=== PATIENT | female | born 1945 | race Caucasian/White ===

== ENCOUNTER → 2021-02-08 11:45 | Outpatient (CLI) | payer MEDICARE, SELFPAY ==
[2021-02-08 13:27] LABS: COVID19 -Nasal RAPID Negative (Negative)
== END ==
PROVIDERS: PCP Physician Assistant; Visit Provider Physician Assistant
DX: Z20.822 Contact with and (suspected) exposure to COVID-19 (principal)
CPT/HCPCS: 87635; C9803

== ENCOUNTER 2021-02-09 13:10 | Day surgery (SDC) | payer MEDICARE, SELFPAY ==
--- NOTE | 2021-02-09 | PATH_ITS ---
[facility] Accession Number: [id number] . 01 Material submitted: . PART A: gastrointestinal site - ANTRUM BIOPSY PART B: gastrointestinal site - GASTRIC POLYP X2 PART C: esophagus - MID ESOPHAGUS BIOPSY . 01 Clinical history: . SDC . 02 Diagnosis: A. Antrum, Biopsy: Portions of gastric antral mucosa with mild chronic inflammation. Negative for Helicobacter by immunohistochemistry. Negative for intestinal metaplasia. Negative for dysplasia and malignancy. . B. Gastric Polyp x2: Portions of fundic gland polyp x 2. Negative for Helicobacter organisms on H/E stain. Negative for dysplasia and malignancy. . C. Mid Esophagus Biopsy: Squamous mucosa with no diagnostic abnormality. Intraepithelial eosinophils are not increased. Negative for dysplasia and malignancy. MRV 02/17/2021 1522 Local . 02 Electronically signed: . Angelica Sales MD, Pathologist NPI- [id number] . 01 Gross description: . Part A: ANTRUM BIOPSY: Received in formalin are 2 fragment(s) of ribera, soft tissue measuring 0.1 x 0.1 x 0.1 cm to 0.2 x 0.2 x 0.2 cm submitted entirely in 1 cassette(s) Part B: GASTRIC POLYP X2: Received in formalin are 2 fragment(s) of ribera, soft tissue measuring 0.4 x 0.3 x 0.3 cm to 0.6 x 0.3 x 0.3 cm submitted entirely in 1 cassette(s) Part C: MID ESOPHAGUS BIOPSY: Received in formalin are 2 fragment(s) of ribera, soft tissue measuring 0.1 x 0.1 x 0.1 cm to 0.2 x 0.2 x 0.2 cm submitted entirely in 1 cassette(s) /ZAFAR 02/10/2021 1859 Local . 02 Microscopic: . A. An immunohistochemical stain was performed to evaluate for Helicobacter organisms and is negative. The control stain showed appropriate reactivity. . * This test was developed and its performance characteristics determined by [facility]. It has not been cleared or approved by the U.S. Food and Drug Administration. The FDA has determined that such clearance or approval is not necessary. This test is used for clinical purposes. It should not be regarded as investigational or for research. . 02 Pathologist provided ICD-10: Z86.010, K29.70, K22.70 . 02 CPT . 791355, 819383, 960360, [id number] Performed at: 01 [facility] [address] [place] [address], [place], [place] [id number] MD Jose Elena MD Phone: [phone] Performed at: 02 [facility] [id number] [place] [id number] MD Barb Meadows MD Phone: [phone]
[2021-02-09 13:34] VITALS: BP 120/85; PULSE 66; RESP 16; TEMP 36.4; O2SAT 96; BMI 26.3
[2021-02-09] MEDS: SODIUM CHLORIDE 0.9% 1,000 ML 84 ML IV (13:55)
--- NOTE | 2021-02-09 14:05 | PM.HP.1 ---
History of Present Illness History of Present Illness Date Patient Seen: 02/09/21 Time Patient Seen: 14:05 Chief complaint: SDC Narrative: I reviewed my note from December 07, 2020 no changes. However the patient does have improved stooling consistency with the addition of fiber. Patient History Medical History Anxiety Rubin esophagus CAD (coronary artery disease) Celiac disease Constipation GERD (gastroesophageal reflux disease) Pacemaker PTSD (post-traumatic stress disorder) Surgical History S/P appendectomy Family & Social History Social History: household members none Tobacco & Substance use: Smoking Status Never smoker alcohol intake current alcohol intake frequency holiday/special occasion Substance Use Type marijuana Meds Home Medications and Allergies Home Medications Medication Instructions Recorded Confirmed Type Magnesium (oxide/AA chelate) 1 tab PO DAILY 02/08/21 02/09/21 History [place] 3 Fish Oil 1 tab PO DAILY 02/08/21 02/09/21 History Vitamin C 1 tab PO DAILY 02/08/21 02/09/21 History Vitamin D3 1 tab PO DAILY 02/08/21 02/09/21 History aspirin 81 mg PO DAILY 02/08/21 02/09/21 History calcium 1 tab PO DAILY 02/08/21 02/09/21 History furosemide 20 mg tablet 20 mg PO DAILY 02/08/21 02/09/21 History pantoprazole 40 mg tablet,delayed 40 mg PO DAILY 02/08/21 02/09/21 History release sotalol 80 mg tablet 80 mg PO DAILY 02/08/21 02/09/21 History spironolactone 25 mg tablet 25 mg PO DAILY 02/08/21 02/09/21 History vitamin B complex 1 tab PO DAILY 02/08/21 02/09/21 History Allergies Allergy/AdvReac Type Severity Reaction Status Date / Time adhesive tape AdvReac Verified 02/08/21 14:18 Review of Systems Review of Systems ROS: Yes All systems reviewed with the patient and are negative except as otherwise documented Exam Vital Signs (past 8 hours): - 02/09/21 13:34 Temperature 97.6 F Pulse Rate 66 Respiratory Rate 16 Blood Pressure 120/85 Pulse Oximetry 96 Oxygen Delivery Method Room Air Const General: cooperative and comfortable Orientation: alert HENMT Head: normocephalic Ears: external ears normal Nose: external nose normal Face and sinus: normal facial exam Mouth: oral mucosae normal Eyes General: appearance normal, both eyes and all related structures Neck Neck: normal visual inspection Chest Chest: normal inspection of the chest Resp Effort & Inspection: normal respiratory effort Cardio Rate: regular rate GI Inspection: normal to inspection Skin General: no rashes or lesions noted and No jaundice Neuro General: patient alert and moves all extremities Cognition: normal cognition Speech: speech normal Extrem General: no pedal edema Psych Appearance: grossly normal Assessment & Plan Assessment & Plan narrative: 75-year-old female who reports a history of Rubin's she has had an element of dysphagia as well. For example she describes a gel like sensation with bowel prep yesterday. She has improved stools with fiber but does have a colon polyp history and is due for surveillance. Both EGD and colonoscopy. Therefore pursued today. Time Spent With Patient Critical Care time: I spent a total of [] minutes of critical care time on this patient's care today; this time is exclusive of procedural time.
--- NOTE | 2021-02-09 14:07 | PM.PREOP ---
Pre-operative Note COVID-19 COVID-19 status: Negative Result date/Date tested (Pos, Neg/Pending): 02/08/21 Interval Note History & Physical reviewed/Exam performed by Physician: Yes Changes to H&P: No ASA Class (for procedural sedation): II
--- NOTE | 2021-02-09 15:13 | PM.OP.EC ---
Operative Date/Time/Diagnoses Date of procedure: 02/09/21 Time of procedure: 15:13 Pre-op diagnosis: Prior history of Rubin's, dysphagia, colon polyp history. Post-op diagnosis: same Procedure & Clinicians Study performed: EGD with biopsies and a colonoscopy Same procedure as scheduled: Yes Indications: Prior reported history of Rubin's, dysphagia, personal history of colon polyps Surgeon: Pelon Power Procedure Notes SCOAP/Timeout: Done Procedure in detail: After the risks and benefits were explained, written and verbal informed consent was obtained. The patient was brought into the procedure room and placed into the left lateral decubitus position. Please see nurse inner layer scrubber tender notes for sedation details. The scope was introduced into the mouth through the bite block and advanced under direct visualization to the 2nd portion of the duodenum. The scope was slowly withdrawn carefully examining the mucosa for any defects or lesions. Retroflexed views were accomplished in the stomach. The stomach was decompressed, the scope was then removed from the patient who tolerated the procedure well. The patient was then turned around a digital rectal examination accomplished no significant pathology appreciated the scope was introduced into the rectum and advanced to the cecum as identified by the appendiceal orifice and ileocecal valve. The scope was slowly withdrawn to carefully examine the mucosa for any defects or lesions. Multiple direct views were made through the dentate line for exclusion of pathology the colon was decompressed scope removed the patient tolerated the procedure well. Bowel prep fair with copious irrigation and suction this was rendered adequate Pediatric colonoscope Scope withdrawal time: 8 minutes Sedation minutes: 33 Complications: none Impression: 1. Duodenum this is visually unremarkable from the bulb through the 2nd portion. 2. Stomach: Mild gastropathy was appreciated. Antral biopsies were acquired for exclusion of Helicobacter or other pathology. No ulcers outlet obstruction or mass lesions. Retroflexed views of the LES were unremarkable. A couple of diminutive benign-appearing gastric polyps were removed with cold forceps from the body. 3. Esophagus: The squamocolumnar junction correlated quite nicely with the top of the gastric folds. GEJ was at 41 cm from the incisors. No acute erosive changes no strictures no mass lesions. There was no evidence of Rubin's esophagus whatsoever. In the context of the patient's symptoms of dysphagia, mid esophageal biopsies were acquired for exclusion of eosinophilic infiltration. 4. Colon: Patient had an extremely difficult defecation to cecum. Very tortuous colon especially in the rectosigmoid region. No significant polyps mass lesions or inflammatory features identified throughout. The Endoscopic diagnosis 1. Gastropathy 2. Gastric polyps 3. No suggestion of Rubin's 4. Tortuous colon 5. Otherwise visually unremarkable exam to cecum Post-procedure Recommendations: Colonscopy in 5 years Plan for aftercare: 1. Await histopathology 2. Repeat colonoscopy 5 years. 3. Surveillance EGD does not appear to be indicated at this time. Disposition: PACU
[2021-02-09 15:16] VITALS: BP 129/69; PULSE 60; RESP 16; TEMP 36.6; O2SAT 97
[2021-02-09 15:21] VITALS: BP 129/68; PULSE 60; RESP 16; O2SAT 99
[2021-02-09 15:27] VITALS: BP 124/64; PULSE 60; RESP 15; O2SAT 99
[2021-02-09 15:46] VITALS: BP 138/67; PULSE 76; RESP 13; TEMP 36.7; O2SAT 98
== END 2021-02-09 15:58 | disposition home or self-care (01) ==
LOC: ENDO 13:12
PROVIDERS: PCP Nurse Practitioner Family; Referring Provider Internal Medicine Gastroenterology; Visit Provider Internal Medicine Gastroenterology
PROC: 0DJ08ZZ Inspection of Upper Intestinal Tract, Via Natural or Artificial Opening Endoscopic (ICD-10-PCS; CPT 43235; principal; 2021-02-09 14:00)
PROC: 0DJD8ZZ Inspection of Lower Intestinal Tract, Via Natural or Artificial Opening Endoscopic (ICD-10-PCS; CPT 45378; 2021-02-09 14:00)
DX: Z12.11 Encounter for screening for malignant neoplasm of colon (principal); R13.10 Dysphagia, unspecified; Z86.010 Personal history of colon polyps; Z87.19 Personal history of other diseases of the digestive system; K21.9 Gastro-esophageal reflux disease without esophagitis; F41.9 Anxiety disorder, unspecified; I25.10 Atherosclerotic heart disease of native coronary artery without angina pectoris; F43.10 Post-traumatic stress disorder, unspecified; K31.9 Disease of stomach and duodenum, unspecified; K31.7 Polyp of stomach and duodenum; K29.50 Unspecified chronic gastritis without bleeding
CPT/HCPCS: 43239; G0105; J2704